=== PATIENT | male | born 1930 | race Caucasian/White ===

== ENCOUNTER 2018-06-26 12:29 | Emergency (ER) | payer MEDICARE, BC ==
[2018-06-26 13:49] VITALS: BP 144/66
--- NOTE | 2018-06-26 14:16 | UC ---
FLU HPI - HPI Summary HPI Summary: Pt is accompanied by son in law. Pt has known exposure to flu. Pt has been coughing and wheezing per son in law x 2 days. - History of Current Complaint Chief Complaint: UCGeneralIllness Stated Complaint: COUGH,SINUS CONCERN Time Seen by Provider: 06/26/18 14:00 Hx Obtained From: Patient, Family/Frame Maker Onset/Duration: Sudden Onset, Lasting Days, Still Present Severity Currently: Mild Severity Initially: Mild Pain Intensity: 0 Associated Signs & Symptoms: Positive: Cough Related Hx: Possible Flu/Infectious Exposure - Risk Factors Influenza Risk Factors: Negative - Allergy/Home Medications Allergies/Adverse Reactions: Allergies Allergy/AdvReac Type Severity Reaction Status Date / Time No Known Allergies Allergy Verified 06/26/18 13:42 Home Medications: Home Medications Atorvastatin* [Lipitor 10 MG*] 10 mg PO DAILY 06/26/18 [History Confirmed ] Glaucoma Drops 06/26/18 [History] Tamsulosin HCl [Flomax] 0.4 mg PO DAILY 06/26/18 [History Confirmed 06/26/18] PMH/Surg Hx/FS Hx/Imm Hx Previously Healthy: Yes Cardiovascular History: Cardiac Disease Respiratory History: Bronchitis - Surgical History Surgical History: Yes Surgery Procedure, Year, and Place: 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 CYST REMOVED FROM TESTICLE. AHMED VALVE PLACEMENT. BILATERAL CATARACTS - Family History Known Family History: Positive: Cardiac Disease - Social History Occupation: Retired Lives: Alone Alcohol Use: None Substance Use Type: None Smoking Status (MU): Never Smoked Tobacco Have You Smoked in the Last Year: No Review of Systems All Other Systems Reviewed And Are Negative: Yes Constitutional: Positive: Negative Skin: Positive: Negative Eyes: Positive: Other - courtney glaucoma ENT: Positive: Negative Respiratory: Positive: Cough, Other - wheezing Cardiovascular: Positive: Negative Gastrointestinal: Positive: Negative Genitourinary: Positive: Negative Motor: Positive: Negative Neurovascular: Positive: Negative Musculoskeletal: Positive: Negative Neurological: Positive: Negative Psychological: Positive: Negative Is Patient Immunocompromised?: No Physical Exam Triage Information Reviewed: Yes Appearance: Well-Appearing Vital Signs: Initial Vital Signs Temp 97.8 F 06/26/18 13:40 Pulse 74 06/26/18 13:40 Resp 17 06/26/18 13:40 BP 144/66 06/26/18 13:40 Pulse Ox 96 06/26/18 13:40 Vital Signs Reviewed: Yes Eye Exam: Normal ENT Exam: Normal ENT: Positive: Other - has hearing aids Dental Exam: Normal Neck exam: Normal Respiratory: Positive: Decreased breath sounds, Wheezing Cardiovascular Exam: Normal Musculoskeletal Exam: Normal Neurological Exam: Normal Psychological Exam: Normal Skin Exam: Normal Diagnostics - Laboratory Diagnostic Studies Completed/Ordered: rapid flu: positive for A Flu Course/Dx - Differential Dx/Diagnosis Differential Diagnosis/HQI/PQRI: Influenza, Pneumonia Provider Diagnosis: Influenza A, Bronchitis Discharge - Sign-Out/Discharge Documenting (check all that apply): Patient Departure All imaging exams completed and their final reports reviewed: No Studies - Discharge Plan Condition: Stable Disposition: HOME Prescriptions: Azithromycin TAB* [Zithromax TAB (Z-AUDREY) 250 mg #6 tabs] 2 tab PO .TODAY, THEN 1 DAILY #1 audrey Oseltamivir CAP* [Tamiflu CAP*] 75 mg PO Q12H #10 cap predniSONE TAB* [Deltasone 20 MG TAB*] 20 mg PO DAILY #4 tab Patient Education Materials: Influenza (DC), Wheezing (ED) Referrals: Júnior Cueva DO [Primary Care Provider] - 2 Days - Billing Disposition and Condition Condition: STABLE Disposition: Home - Attestation Statements Provider Attestation: I was available for consult. This patient was seen by the KEYON. The patient was not presented to, seen by, or examined by me. -Mir
== END 2018-06-26 14:26 | disposition home or self-care (01) ==
LOC: UCCORT 12:29
DX: J09.X2 Influenza due to identified novel influenza A virus with other respiratory manifestations (principal); J40 Bronchitis, not specified as acute or chronic
CPT/HCPCS: 99202; G0463